=== PATIENT | male | born 1995 | race Hispanic/Latino ===

== ENCOUNTER 2021-08-19 00:30 | Emergency (ER) | payer SELFPAY ==
[2021-08-19] MEDS ORDERED: predniSONE 50 MG TAB PO ONE (01:36)
[2021-08-19] MEDS ORDERED: IBUPROFEN 600 MG TAB PO ONE (01:36)
[2021-08-19] MEDS ORDERED: LIDOCAINE VISCOUS 2% 15 ML ORAL LIQD PO ONE (01:36)
--- NOTE | 2021-08-19 02:17 | Cat Scan Report ---
EXAMINATION: CT neck wo con HISTORY: Foreign body sensation: sore throat TECHNIQUE: CT images of the neck performed without intravenous contrast. All CT scans at this [facility] are performed using CT dose reduction for ALARA by means of automated exposure control. COMPARISON: None available. FINDINGS: The nasal cavity, nasopharynx, oropharynx, oral cavity, larynx, and trachea demonstrate no significan t abnormality. The thyroid gland, parotid gland, and submandibular glands appear unremarkable. No soft tissue mass, abscess, or significant lymphadenopathy is identified. No radiopaque foreign bod y.4 Vasculature demonstrates an unremarkable unenhanced appearance. The skull base, paranasal sinuses, visualized brain, and visualized orbits appear grossly unremarkabl e. IMPRESSION: No significant abnormality of the neck. No radiopaque foreign body Signer Name: Popeye Landers MD Signed: 08/19/2021 2:12 AM Workstation Name: [id number]
--- NOTE | 2021-08-19 02:24 | Emergency Department Report ---
ED General Adult HPI - General Chief complaint: Skin/Abscess/Foreign Body Stated complaint: THROAT ISSUES,SINUS Source: patient Mode of arrival: Ambulatory Limitations: No Limitations - History of Present Illness Initial comments: Patient is a 26-year-old white male with no past medical history who presents to the ED with complaint of acute onset sore throat and a feeling of foreign body sensation after a ford he was playing with scratched throat on the left side about 1 hour prior to arrival in the ED. Patient states that the pain is worse with swallowing and it appears as if he still has a foreign body stuck on his larynx or tonsils. Patient denies dysphagia, dysphonia, shortness of breath, cough, chest pain or nosebleed or headache. MD Complaint: Sore throat; throat abrasion -: Sudden, hour(s) (1) Location: mouth Radiation: non-radiation Severity scale (0 -10): 3 Quality: aching, dull Consistency: constant Improves with: none Worsens with: other (swallowing) Associated Symptoms: denies other symptoms. denies: confusion, chest pain, cough, diaphoresis, fever/chills, headaches, loss of appetite, malaise, nause a/vomiting, rash, seizure, shortness of breath, syncope, weakness Treatments Prior to Arrival: none - Related Data Previous Rx's Medication Instructions Recorded Last Taken Type Ibuprofen [Motrin] 600 mg PO Q8H PRN #24 tablet 08/19/21 Unknown Rx Lidocaine Viscous 2% 15 ml MM Q6H PRN #120 ml 08/19/21 Unknown Rx clindamycin HCL [Clindamycin HCl] 300 mg PO Q8H #21 capsule 08/19/21 Unknown Rx Allergies Allergy/AdvReac Type Severity Reaction Status Date / Time No Known Allergies Allergy Unverified 08/19/21 01:12 ED Review of Systems ROS: Stated complaint: THROAT ISSUES,SINUS Other details as noted in HPI Constitutional: denies: chills, fever Eyes: denies: eye pain, eye discharge, vision change ENT: throat pain, other (Foreign body sensation in the throat). denies: ear pain Respiratory: denies: cough, shortness of breath, wheezing Cardiovascular: denies: chest pain, palpitations Endocrine: no symptoms reported Gastrointestinal: denies: abdominal pain, nausea, vomiting, diarrhea Genitourinary: denies: urgency, dysuria Musculoskeletal: denies: back pain, joint swelling, arthralgia Skin: denies: rash, lesions Neurological: denies: headache, weakness, paresthesias Psychiatric: denies: anxiety, depression Hematological/Lymphatic: denies: easy bleeding, easy bruising ED Past Medical Hx - Past Medical History Previous Medical History?: No - Surgical History Past Surgical History?: No - Social History Smoking Status: Never Smoker Substance Use Type: None - Medications Home Medications: Home Medications Medication Instructions Recorded Confirmed Last Taken Type Ibuprofen [Motrin] 600 mg PO Q8H PRN #24 tablet 08/19/21 Unknown Rx Lidocaine Viscous 2% 15 ml MM Q6H PRN #120 ml 08/19/21 Unknown Rx clindamycin HCL [Clindamycin HCl] 300 mg PO Q8H #21 capsule 08/19/21 Unknown Rx ED Physical Exam - General Limitations: No Limitations General appearance: alert, in no apparent distress - Head Head exam: Present: atraumatic, normocephalic, normal inspection - Eye Eye exam: Present: normal appearance, PERRL, EOMI Pupils: Present: normal accommodation - ENT ENT exam: Present: normal exam, mucous membranes moist, TM's normal bilaterally, normal external ear exam, other (Mild erythematous and irritated left tonsils, no bleeding) - Neck Neck exam: Present: normal inspection, full ROM. Absent: tenderness - Respiratory Respiratory exam: Present: normal lung sounds bilaterally. Absent: respiratory distress, wheezes, rales, rhonchi, chest wall tenderness, accessory muscle use, decreased breath sounds - Cardiovascular Cardiovascular Exam: Present: regular rate, normal rhythm, normal heart sounds. Absent: systolic murmur, diastolic murmur, rubs, gallop - GI/Abdominal GI/Abdominal exam: Present: soft, normal bowel sounds. Absent: tenderness, guarding, rebound, hyperactive bowel sounds, hypoactive bowel sounds - Extremities Exam Extremities exam: Present: normal inspection, full ROM, normal capillary refill - Back Exam Back exam: Present: normal inspection, full ROM. Absent: tenderness, CVA tenderness (R), CVA tenderness (L), muscle spasm, paraspinal tenderness, vertebral tenderness - Neurological Exam Neurological exam: Present: alert, oriented X3, CN II-XII intact, normal gait, reflexes normal - Psychiatric Psychiatric exam: Present: normal affect, normal mood - Skin Skin exam: Present: warm, dry, intact, normal color. Absent: rash ED Course Vital Signs 08/19/21 08/19/21 01:02 02:39 Temperature 98.6 F Pulse Rate 71 57 L Respiratory 8 L 18 Rate Blood Pressure 132/78 Blood Pressure 113/67 [Left] O2 Sat by Pulse 100 100 Oximetry ED Medical Decision Making - Radiology Data Radiology results: report reviewed, image reviewed [facility] [address] [place] [address] Cat Scan Report Signed Patient: RADHA JEFFERSON MR#: [id number] : 1995 Acct:[id number] Age/Sex: 26 / M ADM Date: 08/19/21 Loc: ED Attending Dr: Ordering Physician: HOSEA BENAVIDEZ Date of Service: 08/19/21 Procedure(s): CT neck wo con Accession Number(s): [id number] cc: HOSEA BENAVIDEZ EXAMINATION: CT neck wo con HISTORY: Foreign body sensation: sore throat TECHNIQUE: CT images of the neck performed without intravenous contrast. All CT scans at this location are performed using CT dose reduction for ALARA by means of automated exposure control. COMPARISON: None available. FINDINGS: The nasal cavity, nasopharynx, oropharynx, oral cavity, larynx, and trachea demonstrate no significant abnormality. The thyroid gland, parotid gland, and submandibular glands appear unremarkable. No soft tissue mass, abscess, or significant lymphadenopathy is identified. No radiopaque foreign body.4 Vasculature demonstrates an unremarkable unenhanced appearance. The skull base, paranasal sinuses, visualized brain, and visualized orbits appear grossly unremarkable. IMPRESSION: No significant abnormality of the neck. No radiopaque foreign body Signer Name: Sindy Landers MD Signed: 08/19/2021 2:12 AM Workstation Name: [id number] Transcribed By: IWONA Dictated By: SINDY LANDERS MD Electronically Authenticated By: SINDY LANDERS MD Signed Date/Time: 08/19/21211 DD/ 8 TD/TT: - Medical Decision Making This is a 26-year-old white male with no past medical history who presents to the ED with complaint of acute onset sore throat and a feeling of foreign body sensation after a ford he was playing with scratched throat on the left side about 1 hour prior to arrival in the ED. Patient states that the pain is worse with swallowing and it appears as if he still has a foreign body stuck on his larynx or tonsils. In the ED, patient is alert and oriented x3 and is not in any distress. Patient was treated for pain with ibuprofen and lidocaine viscous 2% solution to swish and swallow. Lab test results were reviewed and are all nonactionable. Soft tissue neck CT without contrast showed no acute abnormalities or any foreign body embedded in the oropharynx. On reevaluation, patient felt better and was discharged home on medications and advised to follow-up with his primary care physician in 7 to 10 days for reevaluation or return to the ED immediately if symptoms get worse. - Differential Diagnosis Oropharyngeal abrasion; tonsillar abrasion; foreign body; puncture wound Critical care attestation.: If time is entered above; I have spent that time in minutes in the direct care of this critically ill patient, excluding procedure time. ED Disposition Clinical Impression: Abrasion of throat, initial encounter, Acute sore throat Disposition: HOME / SELF CARE / HOMELESS Is pt being admited?: No Does the pt Need Aspirin: No Condition: Stable Instructions: Sore Throat, [id number], Abrasion, [id number] Additional Instructions: The soft tissue neck CT scan without contrast showed no acute abnormalities including no foreign bodies embedded on the oropharynx. Therefore your symptoms are likely due to an abrasion of your throat. Therefore take medication with food, drink plenty of fluids and follow-up with your primary care physician in 7 to 10 days for reevaluation. Return to the ED immediately if symptoms get worse. Prescriptions: clindamycin HCL [Clindamycin HCl] 300 mg PO Q8H #21 capsule Lidocaine Viscous 2% 15 ml MM Q6H PRN #120 ml PRN Reason: Sore Throat Ibuprofen [Motrin] 600 mg PO Q8H PRN #24 tablet PRN Reason: Pain Referrals: [facility] [Provider Group] - 3-5 Days Time of Disposition: 02: Print Language: PRYDEINIG
[2021-08-19 02:40] VITALS: BP 113/67
== END 2021-08-19 02:39 | disposition home or self-care (01) ==
LOC: ED 00:30
DX: S10.11XA Abrasion of throat, initial encounter (principal); J20.9 Acute bronchitis, unspecified; X58.XXXA Exposure to other specified factors, initial encounter; Y93.89 Activity, other specified; Y92.89 Other specified places as the place of occurrence of the external cause; Y99.8 Other external cause status
CPT/HCPCS: 70490; 99283